=== PATIENT | female | born 1950 | race Caucasian/White ===

== ENCOUNTER 2021-08-26 15:16 | Outpatient (CLI) | payer OTHER, SELFPAY ==
--- NOTE | 2021-08-26 15:47 | XR_ITS ---
WS: [id number] SCREENING DEXA SCAN [facility] CLINICAL INFORMATION: INTIAL BONE DENSITY SCAN COMPARISON: None. FINDINGS: The L1-L4 bone mineral density measures 0.996 g/cm2. This corresponds to a T score score of -1.5 and Z score of -0.1. Left femoral neck bone mineral density measures 0.814 g/cm2. This corresponds to a T score of -1.5 an d Z score of -0.2. Right femoral neck bone mineral density measures 0.795 g/cm2. This corresponds to a T score -1.7of an d Z score of -0.3. Mean femoral neck bone mineral density measures 0.805 g/cm2. This corresponds to a T score of -1.6 an d Z score of -0.2. XR/XR DEXA axial skeleton* [id number] IMPRESSION: Osteopenia Patient's FRAX calculated 10 year probability for major osteoporotic fracture i s 16.2 % and osteoporotic hip fracture is 6.9%.
== END 2021-08-26 15:17 | disposition home or self-care (01) ==
LOC: RAD 15:18
PROVIDERS: PCP Psychiatry & Neurology Neurology with Special Qualifications in Child Neurology; Visit Provider Nurse Practitioner
DX: Z01.89 Encounter for other specified special examinations (principal); M85.80 Other specified disorders of bone density and structure, unspecified site
CPT/HCPCS: 77080